=== PATIENT | male | born 1980 | race Caucasian/White ===

== ENCOUNTER 2024-07-08 10:20 | Emergency (ER) | payer MEDICAID ==
[~2024-07-08] VITALS: Ht 193 cm; Wt 113.4 kg
[2024-07-08 11:02] VITALS: BP 135/85; TEMP 98.4
[2024-07-08] MEDS ORDERED: SULF1TAB48 PO (11:59)
[2024-07-08] MEDS ORDERED: CEPH-570 PO (11:59)
[2024-07-08 12:03] VITALS: O2SAT 99
== END 2024-07-08 12:04 | disposition home or self-care (01) ==
LOC: ER 10:59
DX: L73.8 Other specified follicular disorders (principal); L03.116 Cellulitis of left lower limb; M79.89 Other specified soft tissue disorders